=== PATIENT | male | born 1965 | race Caucasian/White ===

== ENCOUNTER → 2017-09-15 | Outpatient (REF) | payer MEDICARE ==
[2017-09-15 14:04] LABS: ESTRADIOL 27.1 PG/ML (<39.8)
[2017-09-15 14:05] LABS: PSA SCREENING 0.58 NG/ML (< 4.0)
== END ==
LOC: M LAB REF 12:46
DX: E29.1 Testicular hypofunction (principal)
CPT/HCPCS: 84403

== ENCOUNTER 2020-12-01 12:55 | Emergency (ER) | payer MEDICARE ==
[~2020-12-01] VITALS: Ht 172.7 cm; Wt 88.6 kg
[2020-12-01] MEDS ORDERED: MELO15TA28 (13:17)
[2020-12-01] MEDS ORDERED: GABA-282 (13:17)
[2020-12-01] MEDS ORDERED: CLON-412 (13:17)
[2020-12-01] MEDS ORDERED: TIZA2TA (13:17)
[2020-12-01] MEDS ORDERED: DILT240C83 (13:17)
[2020-12-01] MEDS ORDERED: GABA600T4 (13:17)
[2020-12-01] MEDS ORDERED: [UNRECOGNIZED DRUG - CODE] (13:17)
[2020-12-01] MEDS ORDERED: FENT50DI5 (13:17)
[2020-12-01] MEDS ORDERED: LOSA50TA88 (13:17)
[2020-12-01] MEDS ORDERED: OXYC-1 (13:17)
[2020-12-01] MEDS ORDERED: HYDR1CAP25 (13:17)
[2020-12-01] MEDS ORDERED: ATOR40TA75 (13:17)
[2020-12-01] MEDS ORDERED: RIFA300C3 (13:17)
[2020-12-01] MEDS ORDERED: NS 1,000 ML IV ONE (13:40)
--- NOTE | 2020-12-01 14:04 | REP ---
INDICATION: check picc placement COMPARISON: None. TECHNIQUE: Portable AP view of the chest FINDINGS: Right-sided PICC line identified with tip in the SVC in satisfactory position. Mediastinum and cardiac silhouette normal. Lung watters are clear. No consolidation, effusion, or pneumothorax. Skeletal structures demonstrate degenerative changes and postsurgical changes at the left shoulder. IMPRESSION: Right PICC line in satisfactory position. No acute pneumothorax, consolidation or effusion. <Electronically signed by Santos Olivia > 12/01/20 1400
[2020-12-01] MEDS ORDERED: SODIUM CHLORIDE 0.9% INJ 10 ML SYR IV PRN (14:15)
[2020-12-01 14:47] LABS: BASO # 0.1 10^3/uL (0.0-0.2); BASO % 0.5 % (0.0-1.0); EOS # 0.2 10^3/uL (0.0-0.5); EOS % 1.4 % (0.0-3.0); HEMOGLOBIN 9.6 g/dl (13.5-17.5); LYMPH # 0.8 10^3/uL (1.5-5.0); LYMPH % 5.4 % (24.0-44.0); MEAN CORPUSCULAR HGB CONC 33.1 g/dl (32.0-36.5); MEAN CORPUSCULAR VOLUME 90.6 fl (80.0-96.0); MONO # 1.1 10^3/uL (0.0-0.8); NEUTROPHILS # 11.7 10^3/uL (1.5-8.5); NEUTROPHILS % 83.8 % (36.0-66.0); PLATELET COUNT, AUTOMATED 891 10^3/uL (150-450); WHITE BLOOD COUNT 13.9 10^3/uL (4.0-10.0)
[2020-12-01 15:20] LABS: ALBUMIN 2.2 GM/DL (3.2-5.2); ALT/SGPT 13 U/L (12-78); BILIRUBIN,DIRECT 0.3 MG/DL (0.0-0.2); BILIRUBIN,TOTAL 0.5 MG/DL (0.2-1.0); CK-MB VALUE MASS < 1.0 NG/ML (<3.6); CPK CREATINE PHOSPHOKINASE 23 U/L (39-308); MB/CK RELATIVE INDEX 4.35 (< OR =4); TOTAL PROTEIN 6.1 GM/DL (6.4-8.2); TROPONIN I < 0.02 NG/ML (< 0.10)
[2020-12-01 16:51] VITALS: BP 160/94
[2020-12-01 17:38] LABS: RSV AMPLIFICATION NEGATIVE (NEGATIVE)
== END 2020-12-01 18:07 | disposition home or self-care (01) ==
LOC: M ED 12:55
DX: M00.262 Other streptococcal arthritis, left knee (principal); N17.9 Acute kidney failure, unspecified; E87.1 Hypo-osmolality and hyponatremia; Z95.828 Presence of other vascular implants and grafts; Z79.2 Long term (current) use of antibiotics; Z20.822 Contact with and (suspected) exposure to COVID-19; R50.81 Fever presenting with conditions classified elsewhere; R61 Generalized hyperhidrosis; R19.7 Diarrhea, unspecified; R42 Dizziness and giddiness; R53.1 Weakness; R53.83 Other fatigue; I10 Essential (primary) hypertension; E04.9 Nontoxic goiter, unspecified; M19.90 Unspecified osteoarthritis, unspecified site; Z91.5 Personal history of self-harm

== ENCOUNTER 2020-12-24 10:50 | Emergency (ER) | payer MEDICARE ==
[~2020-12-24] VITALS: Ht 170.2 cm; Wt 81.3 kg
[~2020-12-24 10:50] MED LIST: ATOR40TA75; CLON-412; DILT240C83; FENT50DI5; GABA-282; GABA600T4; HYDR1CAP25; LOSA50TA88; MELO15TA28; OXYC-1; RIFA300C3; TIZA2TA; [UNRECOGNIZED DRUG - CODE]
[2020-12-24] MEDS ORDERED: AMIT10TA7 (11:03)
--- NOTE | 2020-12-24 12:17 | REP ---
INDICATION: DYSPNEA/COUGH. COMPARISON: Portable chest dated 12/01/2020. TECHNIQUE: Portable AP chest with the patient upright. FINDINGS: The lung watters are clear. Cardiac size is normal. The eron, mediastinum, and skeletal structures are unremarkable. There is a right upper extremity PICC line with the tip in the superior vena cava in satisfactory position, unchanged. There are orthopedic screws in the shoulders bilaterally, unchanged. IMPRESSION: Essentially negative portable chest. The right upstream the PICC line is unchanged. <Electronically signed by Ramon Claros > 12/24/20 4040
[2020-12-24] MEDS ORDERED: OXYC10TA12 (12:19)
[2020-12-24] MEDS ORDERED: oxyCODONE 5MG TAB PO ONE (12:25)
[2020-12-24 12:28] LABS: BASO # 0.1 10^3/uL (0.0-0.2); BASO % 0.8 % (0.0-1.0); EOS # 0.3 10^3/uL (0.0-0.5); EOS % 3.3 % (0.0-3.0); HEMATOCRIT 28.8 % (42.0-52.0); HEMOGLOBIN 9.5 g/dl (13.5-17.5); MEAN CORPUSCULAR HEMOGLOBIN 29.8 pg (27.0-33.0); MEAN CORPUSCULAR VOLUME 90.3 fl (80.0-96.0); MONO # 0.7 10^3/uL (0.0-0.8); MONO % 9.7 % (2.0-8.0); NEUTROPHILS # 5.6 10^3/uL (1.5-8.5); NEUTROPHILS % 72.8 % (36.0-66.0); PLATELET COUNT, AUTOMATED 337 10^3/uL (150-450); RED BLOOD COUNT 3.19 10^6/uL (4.30-6.10); WHITE BLOOD COUNT 7.6 10^3/uL (4.0-10.0)
[2020-12-24] MEDS ORDERED: LOSARTAN 50MG TABLET PO ONE (12:55)
[2020-12-24] MEDS ORDERED: cloNIDine 0.1MG TABLET PO ONE (12:55)
[2020-12-24 12:59] VITALS: BP 194/118
[2020-12-24 13:02] LABS: ALBUMIN 2.9 GM/DL (3.2-5.2); ALT/SGPT 9 U/L (12-78); BILIRUBIN,DIRECT < 0.1 MG/DL (0.0-0.2); BILIRUBIN,TOTAL 0.3 MG/DL (0.2-1.0); BLOOD UREA NITROGEN 11 MG/DL (7-18); CALCIUM LEVEL 9.4 MG/DL (8.5-10.1); CARBON DIOXIDE LEVEL 27 MEQ/L (21-32); CHLORIDE LEVEL 102 MEQ/L (98-107); CK-MB VALUE MASS 1.2 NG/ML (<3.6); CPK CREATINE PHOSPHOKINASE 28 U/L (39-308); CREATININE FOR GFR 0.63 MG/DL (0.70-1.30); GLOMERULAR FILTRATION RATE > 60.0 (>56); GLUCOSE, FASTING 100 MG/DL (70-100); MB/CK RELATIVE INDEX 4.29 (< OR =4); NT-PRO BNP 284 PG/ML (<125); POTASSIUM SERUM 4.1 MEQ/L (3.5-5.1); SODIUM LEVEL 137 MEQ/L (136-145); THYROXINE (T4) 7.9 UG/DL (4.5-12.0); TOTAL PROTEIN 6.8 GM/DL (6.4-8.2); TROPONIN I < 0.02 NG/ML (< 0.10)
[2020-12-24] MEDS ORDERED: ISOVUE-370 76% 100ML VIAL As Ordered ONE (13:38)
--- NOTE | 2020-12-24 14:48 | REP ---
INDICATION: sob/ limted mobility. COMPARISON: None. TECHNIQUE: CT of the chest with IV contrast, CT angiography. FINDINGS: There are no emboli in the pulmonary trunk or central pulmonary arteries. There are no emboli in the pulmonary artery lobar or segment branches. There are no infiltrates or pleural effusions. There is a 4 mm right upper lobe of lung nodule on image 22, likely benign. There are no other masses or nodules. The thoracic aorta is unremarkable. Cardiac size is normal. There is no pericardial effusion. There is calcified atheroma is of the coronary arteries. Visualized upper abdominal contents are unremarkable. IMPRESSION: There are no pulmonary emboli. There are no infiltrates or pleural effusions. There are no masses. There is a 4 mm right upper lobe lung nodule, likely benign. <Electronically signed by Ramon Claros > 12/24/20 0520
[2020-12-24 15:37] VITALS: BP 138/78
--- NOTE | 2020-12-25 05:56 | ECGEPIP ---
[facility] - ED Test Date: 2020-12-24 Pat Name: OJSE ELISE Department: Room: - Gender: Male [employer] Room: valerie : 1965 Requested By: Milagros William Order Number: [id number] Reading MD: Juanjose Salamanca Measurements Intervals [place] Rate: 76 P: 49 IA: 162 QRS: -24 QRSD: 102 T: 4 QT: 390 QTc: 438 Interpretive Statements Normal sinus rhythm Incomplete right bundle branch block Minimal voltage criteria for LVH, may be normal variant ( R in aVL ) NONSPECIFIC T WAVE ABNORMALITY(S) NO PRIORS FOR COMPARISON Electronically Signed on 12-25-2020 5:56:52 EDT by Juanjose Salamanca
--- NOTE | 2020-12-26 07:20 | ED PDOC ---
Post-Departure Follow-Up radiology report faxed to Milagros Richardson MD Dec 26, 2020 07:20
== END 2020-12-24 15:43 | disposition home or self-care (01) ==
LOC: M ED 10:50
DX: I10 Essential (primary) hypertension (principal); R91.1 Solitary pulmonary nodule; I45.19 Other right bundle-branch block; R06.02 Shortness of breath; Z86.73 Personal history of transient ischemic attack (TIA), and cerebral infarction without residual deficits; F17.200 Nicotine dependence, unspecified, uncomplicated; Z95.828 Presence of other vascular implants and grafts; Z79.899 Other long term (current) drug therapy
CPT/HCPCS: 36415; 71045; 71275; 80048; 80076; 82550; 82553; 83605; 83880; 84436; 84443; 84484; 85025; 87040; 93005; 93041; 94760; 99285; Q9967

== ENCOUNTER 2021-11-02 10:53 | Observation (INO) | payer MEDICARE ==
[~2021-11-02] VITALS: Ht 172.7 cm; Wt 90.9 kg
[~2021-11-02 10:53] MED LIST changes: +AMIT10TA7; -ATOR40TA75; +ATOR40TA75 PO; -CLON-412; +CLON-412 PO; -DILT240C83; +DILT240C83 PO; +FENT1PAT25 TOP; -FENT50DI5; -GABA-282; +GABA-282 PO; -GABA600T4; +GABA600T4 PO; +LOSA50TA28 PO; -LOSA50TA88; -MELO15TA28; +MELO15TA28 PO; +OXYC10TA12; -RIFA300C3; +RIFA300C3 PO; +[UNRECOGNIZED DRUG - CODE]; -[UNRECOGNIZED DRUG - CODE]
[2021-11-02] MEDS ORDERED: OXYC-1 PO (11:11)
[2021-11-02] MEDS ORDERED: DIAZ5TAB PO (11:11)
[2021-11-02] MEDS ORDERED: fentaNYL 50 MCG/HR PATCH TOP ONE (19:20)
[2021-11-02] MEDS ORDERED: NAFCILLIN SOD 2 GM in D5W MINI-BAG PLUS 50 ML IV ONE (19:20)
[2021-11-02] MEDS ORDERED: oxyCODONE 5MG TAB PO ONE (19:20)
[2021-11-02] MEDS ORDERED: FENTANYL REMOVAL DOCUMENTATION MISC XX SCH (19:20)
[2021-11-02] MEDS ORDERED: IRON65TA2 PO (21:17)
[2021-11-02] MEDS ORDERED: OXAC10VI IJ (21:17)
[2021-11-02] MEDS ORDERED: HOME MED LIST COMPLETE! XX SCH (21:20)
[2021-11-02 22:15] LABS: RSV AMPLIFICATION NEGATIVE (NEGATIVE)
[2021-11-03] MEDS ORDERED: GABAPENTIN 300 MG CAP PO SCH (00:05)
[2021-11-03] MEDS ORDERED: oxyCODONE 5MG TAB PO PRN ×2 (00:05→10:25)
[2021-11-03] MEDS ORDERED: rifAMPin 150MG CAPSULE PO SCH ×2 (00:05→12:00)
[2021-11-03] MEDS: LOSARTAN 50MG TABLET PO SCH ×2 (01:01→09:25)
[2021-11-03] MEDS: ATORVASTATIN 20 MG TAB PO SCH ×2 (01:01→09:24)
[2021-11-03] MEDS: diazePAM 5MG TABLET PO SCH ×2 (01:01→10:22)
[2021-11-03] MEDS: cloNIDine 0.1MG TABLET PO SCH ×2 (01:01→09:26)
[2021-11-03] MEDS: FERROUS SULFATE 325MG TAB PO SCH ×3 (01:59→12:10)
[2021-11-03 06:21] LABS: BASO % 0.8 % (0.0-1.0); EOS # 0.5 10^3/uL (0.0-0.5); EOS % 9.1 % (0.0-3.0); HEMATOCRIT 30.4 % (42.0-52.0); HEMOGLOBIN 9.7 g/dl (13.5-17.5); LYMPH # 1.3 10^3/uL (1.5-5.0); MEAN CORPUSCULAR HEMOGLOBIN 31.3 pg (27.0-33.0); MEAN CORPUSCULAR HGB CONC 31.9 g/dl (32.0-36.5); MEAN CORPUSCULAR VOLUME 98.1 fl (80.0-96.0); MONO # 0.5 10^3/uL (0.0-0.8); MONO % 10.5 % (2.0-8.0); NEUTROPHILS # 2.7 10^3/uL (1.5-8.5); NEUTROPHILS % 53.4 % (36.0-66.0); PLATELET COUNT, AUTOMATED 207 10^3/uL (150-450)
[2021-11-03 06:37] LABS: BLOOD UREA NITROGEN 12 MG/DL (7-18); CALCIUM LEVEL 9.2 MG/DL (8.5-10.1); CARBON DIOXIDE LEVEL 30 MEQ/L (21-32); CHLORIDE LEVEL 105 MEQ/L (98-107); CREATININE FOR GFR 0.88 MG/DL (0.70-1.30); GLOMERULAR FILTRATION RATE > 60.0 (>56); GLUCOSE, FASTING 108 MG/DL (70-100); POTASSIUM SERUM 4.2 MEQ/L (3.5-5.1); SODIUM LEVEL 140 MEQ/L (136-145)
[2021-11-03 06:53] LABS: ERYTHROCYTE SEDIMENTATION RATE 31 mm/hr (0-20)
[2021-11-03] MEDS ORDERED: MELOXICAM (MOBIC) 7.5 MG TAB PO SCH (09:00)
[2021-11-03 09:25] VITALS: BP 166/108
[2021-11-03] MEDS: GABAPENTIN 300 MG CAP PO SCH ×2 (09:26→12:10)
[2021-11-03] MEDS ORDERED: LIDOCAINE 1% MDV 20ML VIAL As Ordered ONE (10:19)
[2021-11-03 10:30] VITALS: BP 150/95
[2021-11-03 10:40] VITALS: BP 164/99
== END 2021-11-03 13:00 | disposition home or self-care (01) ==
LOC: M ED 10:53 → M ED INP 10:54
PROVIDERS: ADMIT Internal Medicine; ATTEND Internal Medicine
DX: T82.898A Other specified complication of vascular prosthetic devices, implants and grafts, initial encounter (principal); T84.54XA Infection and inflammatory reaction due to internal left knee prosthesis, initial encounter; I10 Essential (primary) hypertension; E78.5 Hyperlipidemia, unspecified; F11.20 Opioid dependence, uncomplicated; F13.20 Sedative, hypnotic or anxiolytic dependence, uncomplicated; D64.9 Anemia, unspecified; Z79.899 Other long term (current) drug therapy
CPT/HCPCS: 36415; 36584; 71046; 77001; 80048; 85025; 85652; 87631; 96365; 99285; C1751; G0378; J1642; J1644

== ENCOUNTER 2022-02-18 18:42 | Emergency (ER) | payer MEDICARE ==
[~2022-02-18] VITALS: Ht 172.7 cm; Wt 93.2 kg
[~2022-02-18 18:42] MED LIST changes: +DIAZ5TAB PO; +IRON65TA2 PO; +OXAC10VI IJ; +OXYC-1 PO; -RIFA300C3 PO; +RIFA300C8 PO
[2022-02-18 20:50] VITALS: BP 153/99
[2022-02-18] MEDS ORDERED: diazePAM 2 MG TAB PO ONE (20:50)
[2022-02-18] MEDS ORDERED: cloNIDine 0.1MG TABLET PO ONE (20:50)
[2022-02-18] MEDS ORDERED: GABAPENTIN 300 MG CAP PO ONE (20:50)
[2022-02-18] MEDS ORDERED: LOSARTAN 50MG TABLET PO ONE (20:50)
[2022-02-18] MEDS ORDERED: oxyCODONE 5MG TAB PO ONE (22:00)
[2022-02-18 23:01] VITALS: BP 130/78
== END 2022-02-18 23:31 | disposition home or self-care (01) ==
LOC: M ED 18:42
DX: S86.812A Strain of other muscle(s) and tendon(s) at lower leg level, left leg, initial encounter (principal); I16.0 Hypertensive urgency; X58.XXXA Exposure to other specified factors, initial encounter; Y92.9 Unspecified place or not applicable; Y93.9 Activity, unspecified; Y99.9 Unspecified external cause status; E78.5 Hyperlipidemia, unspecified; F41.9 Anxiety disorder, unspecified; G62.9 Polyneuropathy, unspecified; Z79.899 Other long term (current) drug therapy

== ENCOUNTER → 2022-03-09 | Outpatient (CLI) | payer MEDICARE ==
[2022-03-09 13:26] LABS: BASO # 0.1 10^3/uL (0.0-0.2); BASO % 1.3 % (0.0-1.0); EOS # 0.2 10^3/uL (0.0-0.5); EOS % 5.7 % (0.0-3.0); HEMATOCRIT 35.8 % (42.0-52.0); HEMOGLOBIN 11.8 g/dl (13.5-17.5); LYMPH # 0.9 10^3/uL (1.5-5.0); LYMPH % 23.8 % (24.0-44.0); MEAN CORPUSCULAR HEMOGLOBIN 33.2 pg (27.0-33.0); MEAN CORPUSCULAR VOLUME 100.8 fl (80.0-96.0); MONO # 0.4 10^3/uL (0.0-0.8); MONO % 9.3 % (2.0-8.0); NEUTROPHILS # 2.3 10^3/uL (1.5-8.5); NEUTROPHILS % 59.4 % (36.0-66.0); PLATELET COUNT, AUTOMATED 194 10^3/uL (150-450); RED BLOOD COUNT 3.55 10^6/uL (4.30-6.10); WHITE BLOOD COUNT 3.9 10^3/uL (4.0-10.0)
[2022-03-09 14:17] LABS: ERYTHROCYTE SEDIMENTATION RATE 5 mm/hr (0-20)
== END ==
LOC: M RAD 11:56 → M LAB 11:56
PROVIDERS: ATTEND Allergy & Immunology
DX: R53.81 Other malaise (principal)

== ENCOUNTER → 2022-03-24 | Outpatient (CLI) | payer MEDICARE | LOC: M LAB 03-23 13:11 | PROVIDERS: ATTEND Allergy & Immunology | DX: D84.9 Immunodeficiency, unspecified (principal); R53.81 Other malaise ==

== ENCOUNTER → 2022-04-05 | Outpatient (CLI) | payer MEDICARE | LOC: M LAB 11:25 | PROVIDERS: ATTEND Allergy & Immunology | DX: D84.9 Immunodeficiency, unspecified (principal); R53.81 Other malaise ==

== ENCOUNTER → 2022-04-13 | Outpatient (REF) | payer MEDICARE | LOC: M LAB REF 12:56 | PROVIDERS: ATTEND Allergy & Immunology | DX: D84.9 Immunodeficiency, unspecified (principal); R53.81 Other malaise ==

== ENCOUNTER 2024-01-18 15:51 | Emergency (ER) | payer MEDICARE ==
[~2024-01-18] VITALS: Ht 167.6 cm; Wt 94.3 kg
[~2024-01-18 15:51] MED LIST changes: +RIFA300C62 PO; -RIFA300C8 PO
[2024-01-18 15:53] VITALS: BP 118/67; TEMP 97.6; O2SAT 97
== END 2024-01-18 18:32 | disposition home or self-care (01) ==
LOC: M ED 15:51
DX: Z45.2 Encounter for adjustment and management of vascular access device (principal); Z79.899 Other long term (current) drug therapy